=== PATIENT | female | born 1935 | race Caucasian/White ===

== ENCOUNTER → 2016-06-01 | Outpatient (CLI) | payer MEDICARE, BC ==
[~2016-06-01] MED LIST: CHOL1CAP6 PO; LORA-392 PO; MAGN250T13 PO; PRAV10 PO; REME15TA PO; VITA100T15 PO; ZOLP1TAB32 PO
[2016-06-01 13:41] LABS: HDL CHOLESTEROL 68.4 MG/DL (40.0-60.0)
== END ==
LOC: PLAB 09:20
PROVIDERS: ATTEND Family Medicine
DX: E78.5 Hyperlipidemia, unspecified (principal)
CPT/HCPCS: 36415; 80061; 84450; 84460

== ENCOUNTER → 2017-01-20 | Outpatient (CLI) | payer MEDICARE, BC ==
[2017-01-20 13:34] LABS: HDL CHOLESTEROL 69.4 MG/DL (40.0-60.0)
== END ==
LOC: PLAB 09:09
PROVIDERS: ATTEND Family Medicine
DX: E78.5 Hyperlipidemia, unspecified (principal); Z13.1 Encounter for screening for diabetes mellitus; Z68.28 Body mass index [BMI] 28.0-28.9, adult
CPT/HCPCS: 36415; 80061; 82947; 84450; 84460